=== PATIENT | female | born 1950 | race Caucasian/White ===

== ENCOUNTER 2016-10-07 17:54 | Emergency (ER) | payer OTHER ==
[~2016-10-07] VITALS: Ht 152.4 cm; Wt 56.0 kg
[~2016-10-07 17:54] MED LIST: ASPI81TA3 PO; D-ME473S2 PO; GLIP5TAB13 PO; IBUP400T22 PO; METF500T4 PO; TRAM50TA2 PO; TYL500 PO
[2016-10-07 18:29] VITALS: Ht 152.4 cm; Wt 56.0 kg
[2016-10-07] MEDS ORDERED: ALBU8.5H3 INH (18:49)
[2016-10-07] MEDS ORDERED: CETI10CA PO (18:49)
[2016-10-07] MEDS ORDERED: IBUP400T22 PO (18:49)
[2016-10-07] MEDS ORDERED: GUAI120S26 PO (18:49)
--- NOTE | 2016-10-07 18:54 | ERD ---
ER Documentation Chief Complaint Date/Time DATE: 10/07/16 TIME: 18:52 Chief Complaint headache, bodyaches, fever, cough HPI 65-year-old female presents here in emergency department for complaints of headache bodyaches fever cough runny nose nasal congestion for 3 days. Patient has been having dry cough, does not cough up any phlegm or blood. Patient does not have any shortness breath or wheezing. She has been having runny nose, nasal congestion clear nasal discharge. Patient does not have wheezing, chest pain or palpitations. Patient denies any dizziness. Patient is complaining of headache and bodyaches throbbing pain, 4/10 scale, is accompanying the other symptoms. Patient did not take any medications up with symptoms. ROS All systems reviewed and are negative except as per history of present illness. Medications Home Meds Active Scripts Albuterol Sulfate* (Proair HFA*) 8.5 Gm Hfa.aer.ad, 2 PUFF INH Q4H Y for WHEEZING AND SOB, #1 INHALER Prov:ARISTIDES ROBBINS NP 10/07/16 Ibuprofen* (Motrin*) 400 Mg Tab, 400 MG PO Q6H Y for PAIN AND OR ELEVATED TEMP, #30 TAB Prov:ARISTIDES ROBBINS NP 10/07/16 Cetirizine Hcl* (Zyrtec*) 10 Mg Capsule, 10 MG PO DAILY, #30 TAB.CHEW Prov:ARISTIDES ROBBINS NP 10/07/16 Fbkdmprnyvp-Y-Sqaseafnqm Hb* (Guaifenesin* DM Syrup) 120 Ml Syrup, 10 ML PO Q4H Y for COUGH, #120 ML Prov:ARISTIDES ROBBINS NP 10/07/16 Tramadol HCl (Tramadol HCl) 50 Mg Tablet, 50 MG PO Q6 Y for SEVERE PAIN LEVEL 7- 10, #20 TAB Prov:ARISTIDES ROBBINS NP 03/10/16 Ibuprofen* (Motrin*) 400 Mg Tab, 400 MG PO Q6H Y for PAIN AND OR ELEVATED TEMP, #30 TAB Prov:ARISTIDES ROBBINS NP 03/10/16 Dextromethorphan Hb-Promethazine Hcl* (Promethazine DM* Syrup) 473 Ml Syrup, 5 ML PO Q6 Y for COUGH for 5 Days, ML Prov:SIMIN REYNOLDS MD 07/30/15 Acetaminophen* (Tylenol*) 500 Mg Tab, 500 MG PO Q4H Y for MILD PAIN LEVEL 1-3, # 16 TAB Prov:SIMIN REYNOLDS MD 07/30/15 Reported Medications Aspirin (Aspirin) 81 Mg Chew, 81 MG PO DAILY, TAB.CHEW 02/23/14 Metformin* (Glucophage*) 500 Mg Tab, 250 MG PO WITH BREAKFAST, TAB 02/23/14 Glipizide* (Glipizide*) 5 Mg Tablet, 5 MG PO DAILY, TAB 02/23/14 Allergies Allergies: Coded Allergies: No Known Allergy (Unverified , 07/30/15) PMhx/Soc History of Surgery: Yes (c/s, hernia repair, section) Anesthesia Reaction: No Hx Neurological Disorder: No Hx Respiratory Disorders: No Hx Cardiac Disorders: No Hx Psychiatric Problems: No Hx Miscellaneous Medical Probl: No Hx Alcohol Use: No Hx Substance Use: No Hx Tobacco Use: No FmHx Family History: No coronary disease, No diabetes, No other Physical Exam Vitals Vital Signs Date Time Temp Pulse Resp B/P Pulse Ox O2 Delivery O2 Flow Rate FiO2 10/07/16 18:29 97.8 101 20 160/72 99 Physical Exam GENERAL: The patient is well developed and appropriate for usual state of health, in no apparent distress. HEENT: Atraumatic. Ears: Normal tympanic membrane, no erythema or bulging. No ear canal swelling. No ear discharge. Nose: Erythematous nasal turbinates with clear nasal discharge. Throat: oropharynx erythematous with postnasal drip. No tonsillar swelling or tonsillar exudates. No lymphadenopathy. CHEST: Clear to auscultation bilaterally. There are no rales, wheezes or rhonchi. HEART: Regular rate and rhythm. No murmurs, clicks, rubs or gallops. No S3 or S4. ABDOMEN: Soft, nontender and nondistended. Good bowel sounds. No rebound or guarding. No gross peritonitis. No gross organomegaly or masses. No Rodgers sign or McBurney point tenderness. BACK: No midline or flank tenderness. EXTREMITIES: Equal pulses bilaterally. There is no peripheral clubbing, cyanosis or edema. No focal swelling or erythema. Full range of motion. Grossly neurovascularly intact. NEURO: Alert and oriented. Cranial nerves 2-12 intact. Motor strength in all 4 extremities with 5/5 strength. Sensation grossly intact. Normal speech and gait. SKIN: There is no apparent rash or petechia. The skin is warm and dry. HEMATOLOGIC AND LYMPHATIC: There is no evidence of excessive bruising or lymphedema. No gross cervical, axillary, or inguinal lymphadenopathy. Procedures/MDM Medical Decision Making: Patient symptoms are most likely consistent with acute bronchitis, which viral in origin. There is low suspicion for Pneumonia at this time since patients lungs sounds are clear, patient O2 saturation is normal and patient doesnt show any respiratory distress. Radiology exam is not indicated at this. There is low suspicion for other cardiopulmonary emergencies at this time such as CHF, Pulmonary Embolism, Pneumothorax, or any other cardiopulmonary emergencies at this time. There is low suspicion for sepsis. Patient appears well and is hemodynamically stable. Fever is controlled with medicines. Disposition: Home. Condition: Stable Prescriptions: Guaifenesin DM Zyrtec ibuprofen albuterol Instructions: Patient is advised to take medications as prescribed. Patient is advised to rest. Patient advised to increase fluid intake, do humidifier at home and if possible, do salt water gargles. Patient is advised that if symptoms are worse, shortness of breath, uncontrolled fever, stridor, vomiting, worst signs and symptoms to return to emergency department immediately. Otherwise, patient is advised to follow up with primary doctor in 5-7 days. Departure Diagnosis: Primary Impression: Acute bronchitis Bronchitis organism: unspecified organism Qualified Code: J20.9 - Acute bronchitis, unspecified organism Condition: Stable Patient Instructions: Bronchitis, No Antibiotic (Adult) ARISTIDES ROBBINS NP Oct 07, 2016 18:54
== END 2016-10-07 18:52 | disposition home or self-care (01) ==
LOC: FTE 17:54 → E/R 18:52
DX: J20.9 Acute bronchitis, unspecified (principal); E11.9 Type 2 diabetes mellitus without complications; Z79.82 Long term (current) use of aspirin; Z79.84 Long term (current) use of oral hypoglycemic drugs
CPT/HCPCS: 99283

== ENCOUNTER 2018-09-18 14:54 | Emergency (ER) | payer OTHER ==
[~2018-09-18] VITALS: Wt 55.4 kg
[~2018-09-18 14:54] MED LIST changes: +ALBU8.5H8 INH; +ASPI-831 PO; -ASPI81TA3 PO; +CETI10CA PO; +GUAI120S26 PO; +IBUP-1561 PO; -IBUP400T22 PO; +METF-849 PO; -METF500T4 PO
[2018-09-18 14:57] VITALS: BP 127/68; PULSE 95; RESP 19
[2018-09-18] MEDS ORDERED: D-ME473S2 PO (17:37)
[2018-09-18] MEDS ORDERED: ACET500C5 PO (17:37)
--- NOTE | 2018-09-18 17:38 | ERD ---
ER Documentation Chief Complaint Chief Complaint bib self, cc: multiple complaints, headache. body aches, st HPI 67-year-old female presents with 1 day history of itchy nose, cough and sore throat. She denies fevers. She has bitemporal headache and body aches as well. She denies chest pain, shortness of breath, vomiting, abdominal pain. ROS All systems reviewed and are negative except as per history of present illness. Medications Home Meds Active Scripts Dextromethorphan Hb-Promethazine Hcl* (Promethazine DM* Syrup) 473 Ml Syrup, 5 ML PO Q6 PRN for COUGH for 5 Days, ML Prov:SIMIN REYNOLDS MD 09/18/18 Acetaminophen* (Tylophen*) 500 Mg Capsule, 1 CAP PO Q6H PRN for PAIN AND OR ELEVATED TEMP, #15 CAP Prov:SIMIN REYNOLDS MD 09/18/18 Albuterol Sulfate* (Proair HFA*) 8.5 Gm Hfa.aer.ad, 2 PUFF INH Q4H PRN for WHEEZING AND SOB, #1 INHALER Prov:ARISTIDES ROBBINS NP 10/07/16 Ibuprofen* (Motrin*) 400 Mg Tab, 400 MG PO Q6H PRN for PAIN AND OR ELEVATED TEMP, #30 TAB Prov:ARISTIDES ROBBINS NP 10/07/16 Cetirizine Hcl* (Zyrtec*) 10 Mg Capsule, 10 MG PO DAILY, #30 TAB.CHEW Prov:ARISTIDES ROBBINS NP 10/07/16 Osltdctpqck-U-Krbuhsccmw Hb* (Guaifenesin* DM Syrup) 120 Ml Syrup, 10 ML PO Q4H PRN for COUGH, #120 ML Prov:ARISTIDES ROBBINS NP 10/07/16 Tramadol HCl (Tramadol HCl) 50 Mg Tablet, 50 MG PO Q6 PRN for SEVERE PAIN LEVEL 7-10, #20 TAB Prov:ARISTIDES ROBBINS NP 03/10/16 Ibuprofen* (Motrin*) 400 Mg Tab, 400 MG PO Q6H PRN for PAIN AND OR ELEVATED TEMP, #30 TAB Prov:ARISTIDES ROBBINS NP 03/10/16 Dextromethorphan Hb-Promethazine Hcl* (Promethazine DM* Syrup) 473 Ml Syrup, 5 ML PO Q6 PRN for COUGH for 5 Days, ML Prov:SIMIN REYNOLDS MD 07/30/15 Acetaminophen* (Tylenol*) 500 Mg Tab, 500 MG PO Q4H PRN for MILD PAIN LEVEL 1-3, #16 TAB Prov:SIMIN REYNOLDS MD 07/30/15 Reported Medications Aspirin (Aspirin) 81 Mg Chew, 81 MG PO DAILY, TAB.CHEW 02/23/14 Metformin* (Glucophage*) 500 Mg Tab, 250 MG PO WITH BREAKFAST, TAB 02/23/14 Glipizide* (Glipizide*) 5 Mg Tablet, 5 MG PO DAILY, TAB 02/23/14 Allergies Allergies: Coded Allergies: No Known Allergy (Unverified , 07/30/15) PMhx/Soc History of Surgery: Yes (c/s, hernia repair, section) Anesthesia Reaction: No Hx Neurological Disorder: No Hx Respiratory Disorders: No Hx Cardiac Disorders: No Hx Psychiatric Problems: No Hx Miscellaneous Medical Probl: No Hx Alcohol Use: No Hx Substance Use: No Hx Tobacco Use: No FmHx Family History: No diabetes, No coronary disease, No other Physical Exam Vitals Vital Signs Date Temp Pulse Resp B/P (MAP) Pulse Ox O2 O2 Flow FiO2 Time Delivery Rate 09/18/18 97.5 95 19 127/68 100 14:57 (87) Physical Exam Const: No acute distress Head: Atraumatic Eyes: Normal Conjunctiva ENT: Normal External Ears, Nose and Mouth. TMs and oropharynx normal. Neck: Full range of motion. No meningismus. Resp: Clear to auscultation bilaterally Cardio: Regular rate and rhythm, no murmurs Abd: Soft, non tender, non distended. Normal bowel sounds Skin: No petechiae or rashes Back: No midline or flank tenderness Ext: No cyanosis, or edema Neur: Awake and alert Psych: Normal Mood and Affect Procedures/MDM Patient presents with multiple complaints of itchy nose, cough, sore throat, body aches, bitemporal headache suggestive of likely viral URI. She has no signs of meningismus, hypoxemia, rest or distress, abdominal pain or chest pain. Will treat with Tylenol, promethazine DM, primary care follow-up and return precautions. The patient was stable with no new complaints during the ER course. Clinically, there is no current evidence to suggest meningitis, sepsis, acute abdomen, pneumonia, stroke, acute coronary syndrome, pulmonary embolism, aortic dissection or any other emergent condition appearing to require further evaluation or hospitalization. Patient counseled regarding my diagnostic impression and care plan. Prior to discharge all questions answered. Pt agrees with treatment plan and understands strict return precautions. Pt is instructed to follow up with primary care provider within 24-48 hours. Precautionary instructions provided including instructions to return to the ER if not improving or for any worsening or changing symptoms or concerns. Departure Diagnosis: Primary Impression: URI, acute Condition: Stable Patient Instructions: Uri, Viral, No Abx (Adult) Referrals: [facility] (PCP) Additional Instructions: Probablamente un virus que dura 2-4 duron. cheque otro vez en el proximo jackeline para mas simptomas- vomito, dolor, sherri, problemas con respirando, o con bedolla doctor primario. SIMIN REYNOLDS MD Sep 18, 2018 17:38
== END 2018-09-18 18:00 | disposition home or self-care (01) ==
LOC: FTE 14:54
DX: J06.9 Acute upper respiratory infection, unspecified (principal); E11.9 Type 2 diabetes mellitus without complications; Z79.82 Long term (current) use of aspirin; Z79.84 Long term (current) use of oral hypoglycemic drugs
CPT/HCPCS: 99283

== ENCOUNTER 2019-05-10 15:51 | Emergency (ER) | payer OTHER ==
[~2019-05-10] VITALS: Ht 152.4 cm; Wt 55.8 kg
[~2019-05-10 15:51] MED LIST changes: +ACET500C5 PO; +CLIN300C10 PO; +GUAI120S25 PO; -GUAI120S26 PO; +HYDR-4011 PO; +IBUP800T48 PO; +NAPR-985 PO
[2019-05-10 16:03] VITALS: Ht 152.4 cm; Wt 55.8 kg
[2019-05-10] MEDS ORDERED: LIDOCAINE 1% (MPF) 5 ML VIAL INJ ONE (16:30)
== END 2019-05-10 17:21 | disposition home or self-care (01) ==
LOC: FTE 15:51
DX: N76.4 Abscess of vulva (principal); E11.9 Type 2 diabetes mellitus without complications; Z79.82 Long term (current) use of aspirin; Z79.84 Long term (current) use of oral hypoglycemic drugs
CPT/HCPCS: 56405; Z7502; Z7610